=== PATIENT | male | born 1935 | race Caucasian/White ===

== ENCOUNTER → 2016-09-26 | Outpatient (REF) | payer MEDICARE ==
[~2016-09-26] MED LIST: /WARF25TA; ACET65TA; ASPI325T24 PO; COUM1TAB17 PO; COUM7.5T PO; PERC5TAB12 PO; PERC5TAB8; TYLE325T5 PO; lumigan OU
== END ==
LOC: M LAB REF 17:40
PROVIDERS: ATTEND Surgery
DX: C44.519 Basal cell carcinoma of skin of other part of trunk (principal); C44.529 Squamous cell carcinoma of skin of other part of trunk

== ENCOUNTER 2020-12-26 13:27 | Inpatient (IN) | payer MEDICARE, OTHER ==
[~2020-12-26] VITALS: Ht 188 cm; Wt 103.0 kg
[~2020-12-26 13:27] MED LIST changes: -/WARF25TA; +ASPI-255 PO; -ASPI325T24 PO; +COUM1TAB18; -COUM7.5T PO; +COUM7.5T6 PO
[2020-12-26 14:53] LABS: BASO % 0.3 % (0.0-1.0); EOS # 0.2 10^3/uL (0.0-0.5); EOS % 2.4 % (0.0-3.0); HEMATOCRIT 42.5 % (42.0-52.0); LYMPH # 1.8 10^3/uL (1.5-5.0); LYMPH % 19.1 % (24.0-44.0); MEAN CORPUSCULAR HEMOGLOBIN 30.8 pg (27.0-33.0); MEAN CORPUSCULAR HGB CONC 32.9 g/dl (32.0-36.5); MEAN CORPUSCULAR VOLUME 93.6 fl (80.0-96.0); MONO # 1.4 10^3/uL (0.0-0.8); MONO % 15.3 % (2.0-8.0); NEUTROPHILS # 5.7 10^3/uL (1.5-8.5); NEUTROPHILS % 62.7 % (36.0-66.0); PLATELET COUNT, AUTOMATED 215 10^3/uL (150-450); RED BLOOD COUNT 4.54 10^6/uL (4.30-6.10); WHITE BLOOD COUNT 9.2 10^3/uL (4.0-10.0)
[2020-12-26 15:21] LABS: CK-MB VALUE MASS 7.3 NG/ML (<3.6); CPK CREATINE PHOSPHOKINASE 327 U/L (39-308); MB/CK RELATIVE INDEX 2.23 (< OR =4); TROPONIN I < 0.02 NG/ML (< 0.10)
[2020-12-26 16:06] LABS: BLOOD UREA NITROGEN 21 MG/DL (7-18); CALCIUM LEVEL 8.6 MG/DL (8.8-10.2); CARBON DIOXIDE LEVEL 29 MEQ/L (21-32); CHLORIDE LEVEL 110 MEQ/L (98-107); CREATININE FOR GFR 0.88 MG/DL (0.70-1.30); GLOMERULAR FILTRATION RATE > 60.0 (>35); GLUCOSE, FASTING 96 MG/DL (70-100); POTASSIUM SERUM 4.6 MEQ/L (3.5-5.1); SODIUM LEVEL 142 MEQ/L (136-145)
[2020-12-26] MEDS ORDERED: ISOVUE-370 76% 100ML VIAL As Ordered ONE (16:42)
[2020-12-26] MEDS ORDERED: FUROSEMIDE 40MG/4ML VIAL (J1940) IV ONE (17:45)
[2020-12-26] MEDS ORDERED: HOME MED LIST COMPLETE! XX SCH (18:45)
[2020-12-26 19:53] LABS: RSV AMPLIFICATION NEGATIVE (NEGATIVE)
[2020-12-26] MEDS: KETOROLAC 30 MG/ML 1ML VIAL IV SCH (20:18)
[2020-12-26] MEDS: ACETAMINOPHEN 500 MG TAB PO SCH (20:19)
[2020-12-26] MEDS ORDERED: LIDOCAINE 5% (LIDODERM) PATCH TD SCH (21:00)
[2020-12-26 23:26] LABS: CK-MB VALUE MASS 5.1 NG/ML (<3.6); CPK CREATINE PHOSPHOKINASE 221 U/L (39-308); MB/CK RELATIVE INDEX 2.31 (< OR =4); TROPONIN I < 0.02 NG/ML (< 0.10)
[2020-12-27] MEDS: KETOROLAC 30 MG/ML 1ML VIAL IV SCH ×3 (02:00→14:00)
[2020-12-27 08:11] LABS: BASO % 0.4 % (0.0-1.0); EOS # 0.3 10^3/uL (0.0-0.5); EOS % 4.3 % (0.0-3.0); HEMATOCRIT 40.6 % (42.0-52.0); HEMOGLOBIN 13.5 g/dl (13.5-17.5); LYMPH # 1.6 10^3/uL (1.5-5.0); LYMPH % 22.3 % (24.0-44.0); MEAN CORPUSCULAR HEMOGLOBIN 31.1 pg (27.0-33.0); MEAN CORPUSCULAR HGB CONC 33.3 g/dl (32.0-36.5); MEAN CORPUSCULAR VOLUME 93.5 fl (80.0-96.0); MONO # 1.3 10^3/uL (0.0-0.8); NEUTROPHILS # 3.8 10^3/uL (1.5-8.5); NEUTROPHILS % 54.7 % (36.0-66.0); PLATELET COUNT, AUTOMATED 213 10^3/uL (150-450); RED BLOOD COUNT 4.34 10^6/uL (4.30-6.10); WHITE BLOOD COUNT 6.9 10^3/uL (4.0-10.0)
[2020-12-27 08:48] LABS: CALCIUM LEVEL 9.1 MG/DL (8.8-10.2); CARBON DIOXIDE LEVEL 31 MEQ/L (21-32); CHLORIDE LEVEL 107 MEQ/L (98-107); CREATININE FOR GFR 0.77 MG/DL (0.70-1.30); GLOMERULAR FILTRATION RATE > 60.0 (>35); GLUCOSE, FASTING 90 MG/DL (70-100); POTASSIUM SERUM 4.2 MEQ/L (3.5-5.1); SODIUM LEVEL 142 MEQ/L (136-145)
[2020-12-27] MEDS: ACETAMINOPHEN 500 MG TAB PO SCH ×2 (09:00→16:00)
[2020-12-27] MEDS ORDERED: **NOTE PATIENT COMMENT** MISC XX SCH (09:00)
[2020-12-27 09:08] LABS: BLOOD UREA NITROGEN 19 MG/DL (7-18)
[2020-12-27] MEDS ORDERED: FUROSEMIDE 40MG/4ML VIAL (J1940) IV ONE (12:00)
[2020-12-27] MEDS ORDERED: LIDO5CRE6 EX (12:37)
[2020-12-27] MEDS ORDERED: LASI20TA3 PO (12:37)
[2020-12-27] MEDS ORDERED: KETO10TAB PO (12:37)
[2020-12-27] MEDS ORDERED: ACET650T61 PO (12:37)
[2020-12-27 13:42] VITALS: BP 152/78
== END 2020-12-27 17:17 | disposition home or self-care (01) | DRG 313 ==
LOC: M ED 13:27 → M ED INP 18:55 → ENRESERV 12-27 13:05 → M MSPAV 12-27 14:24
PROVIDERS: ADMIT Internal Medicine Nephrology; ATTEND Internal Medicine Nephrology
DX: R07.89 Other chest pain (principal); I50.32 Chronic diastolic (congestive) heart failure; R42 Dizziness and giddiness; G47.33 Obstructive sleep apnea (adult) (pediatric); H40.9 Unspecified glaucoma; M19.90 Unspecified osteoarthritis, unspecified site; N40.0 Benign prostatic hyperplasia without lower urinary tract symptoms; Z96.653 Presence of artificial knee joint, bilateral; Z98.49 Cataract extraction status, unspecified eye; Z90.49 Acquired absence of other specified parts of digestive tract; Z79.82 Long term (current) use of aspirin; Z20.822 Contact with and (suspected) exposure to COVID-19; Z91.041 Radiographic dye allergy status; I48.91 Unspecified atrial fibrillation

== ENCOUNTER → 2021-08-26 | Outpatient (CLI) | payer MEDICARE ==
[~2021-08-26] MED LIST changes: +ACET650T61 PO; +KETO10TAB PO; +LASI20TA3 PO; +LIDO5CRE6 EX
== END ==
LOC: M WUC 10:22
PROVIDERS: ATTEND Family Medicine
DX: R05.9 Cough, unspecified (principal)

== ENCOUNTER → 2023-11-08 | Outpatient (CLI) | payer MEDICARE | LOC: M CARPUL 08:26 | PROVIDERS: ATTEND Family Medicine | DX: R60.9 Edema, unspecified (principal); I27.20 Pulmonary hypertension, unspecified; I36.1 Nonrheumatic tricuspid (valve) insufficiency ==

== ENCOUNTER 2024-09-24 18:27 | Emergency (ER) | payer MEDICARE ==
[~2024-09-24] VITALS: Ht 188 cm; Wt 108.1 kg
[2024-09-24 18:33] VITALS: TEMP 97.7
[2024-09-24] MEDS: NEOSPORIN OINT 0.9 GM PKT TOP ONE (19:56)
[2024-09-24] MEDS: LIDOCAINE W/EPINEPHrine 1% 20 ML VIAL SC ONE (19:57)
[2024-09-24 22:15] VITALS: BP 164/86; O2SAT 98
== END 2024-09-24 22:23 | disposition home or self-care (01) ==
LOC: M ED 18:27
DX: S01.112A Laceration without foreign body of left eyelid and periocular area, initial encounter (principal); S52.002A Unspecified fracture of upper end of left ulna, initial encounter for closed fracture; W10.8XXA Fall (on) (from) other stairs and steps, initial encounter; Y92.009 Unspecified place in unspecified non-institutional (private) residence as the place of occurrence of the external cause; Y93.9 Activity, unspecified; Y99.9 Unspecified external cause status; I48.91 Unspecified atrial fibrillation; I10 Essential (primary) hypertension; Z87.442 Personal history of urinary calculi; Z96.653 Presence of artificial knee joint, bilateral; M47.812 Spondylosis without myelopathy or radiculopathy, cervical region; Z79.82 Long term (current) use of aspirin; Z91.041 Radiographic dye allergy status

== ENCOUNTER → 2024-09-30 | Outpatient (CLI) | payer MEDICARE | LOC: M SOG 07:08 | PROVIDERS: ATTEND Physician Assistant | DX: M25.532 Pain in left wrist (principal) ==

== ENCOUNTER → 2024-10-14 | Outpatient (CLI) | payer MEDICARE | LOC: M SOG 06:54 | PROVIDERS: ATTEND Physician Assistant | DX: M25.532 Pain in left wrist (principal) ==

== ENCOUNTER → 2024-10-17 | Outpatient (REF) | payer MEDICARE | LOC: M LAB REF 11:43 | PROVIDERS: ATTEND Physician Assistant Medical | DX: L03.116 Cellulitis of left lower limb (principal) ==